=== PATIENT | male | born 1955 | race Caucasian/White ===

== ENCOUNTER → 2017-11-01 | Outpatient (CLI) | payer OTHER ==
--- NOTE | 2017-11-01 10:14 | RAD ---
Examination: Right knee, two views History: Swelling Findings: Arthroplasty components are present with anatomic relation and no evidence for dislocation or bone destruction or loosening. There is no large synovial effusion identified although infrapatell ar soft tissue swelling is suggested. There is slight cortical irregularity involving the lateral fem oral condyle. No displacement or deformity is noted. Impression: Status post right knee arthroplasty. Nonspecific anterior soft tissue swelling. If trauma has been sustained and patient is symptomatic over the lateral femoral condyle, additional imaging r ecommended to detect possible fracture. Reported By:
== END ==
LOC: RAD 09:12
PROVIDERS: ATTEND Internal Medicine
DX: M25.561 Pain in right knee (principal); Z96.651 Presence of right artificial knee joint; M79.89 Other specified soft tissue disorders
CPT/HCPCS: 73560

== ENCOUNTER → 2017-11-17 | Outpatient (CLI) | payer OTHER ==
--- NOTE | 2017-11-17 09:56 | MRI ---
History: Right knee pain. Right knee total arthroplasty. Exam: Noncontrast MRI examination of the right knee joint. Technique: Multi sequence and multiplanar MRI images of the right knee joint performed at 1.5 aaron w ithout the benefit of IV gadolinium contrast. Comparison: 11/01/2017. Findings: There is diffuse field distortion and susceptibility artifact from the right total knee arthroplasty which does somewhat compromises the quality of this examination. However, no definitive bone marrow e hilda or stress fracture is seen. There is thickening of the patellar tendon and distal quadriceps ten don complex which probably reflects diffuse patellar tendinosis and distal quadriceps peritendinitis. No significant prepatellar bursitis or periarticular mass lesions are seen. No other knee joint inju berna or abnormalities are observed, given the limitations of this right knee joint MRI examination se condary to diffuse field distortion and artifact. Impression: Diffuse patellar tendinosis/thickening and distal quadriceps peritendinitis. No evidence for pathologic bone marrow edema or an acute fracture. No other knee joint injuries or abnormalities observed, as detailed above. Reported By:
== END ==
LOC: RAD 08:18
PROVIDERS: ATTEND Internal Medicine
DX: M25.561 Pain in right knee (principal)
CPT/HCPCS: 73721